=== PATIENT | female | born 2000 | race African-American/Black ===

== ENCOUNTER 2019-03-10 20:31 | Emergency (ER) | payer MEDICAID ==
[~2019-03-10] VITALS: Ht 152.4 cm; Wt 46.3 kg
[2019-03-10 20:35] VITALS: BP_SYST 109
--- NOTE | 2019-03-10 20:40 | NUR ---
Placed in room 2 . Placed on media librarian, blood pressure machine and pulse oximeter. To gown for exam. Side rails up. Report given to Cely ANSARI(registry).
--- NOTE | 2019-03-10 20:48 | NUR ---
Pt. RECIEVEED FROM TRIAGE, W/ CHIEF C/O SYNCOPAL EPISODE, AFTER [place] BECAME DIZZY, W/ MALAISE AND NAUSEA. AAOX4 SKIN W/D TO TOUCH, [place], +2 PULSES, NEG EDEMA. VS DONE. FOSTER CARE MOM AT BEDSIDE. PENDING MD REARDON / Tx.
--- NOTE | 2019-03-10 20:50 | NUR ---
DANNIELLE Bell at bedside examining patient.
[2019-03-10] MEDS ORDERED: NACL 0.9% 1,000 ML IV ONE (21:00)
[2019-03-10] MEDS ORDERED: ONDANSETRON HCL 4 MG/2 ML VIAL IVP ONE (21:00)
--- NOTE | 2019-03-10 21:00 | NUR ---
PATIENT LAST MEAL WAS BREAKFAST, HAD SNACKS AT 3 PM, WENT TO A [place] CLASS, WHERE SHE BECAME DIZZY, Pt. IS NOT SEXUALLY ACTIVE, DENIES Hx OF DIETING, OR BODY IMAGE DISTURBANCE. NEW ODERS IN. POS URINE NEG, U/A SENT TO LAB. LAB DRAWN BY BROACHING MACHINE OPERATOR. PT TOLERATED WELL.
[2019-03-10 21:34] LABS: BASOPHILS % (AUTO) 0.4 % (0.0-2.0); EOSINOPHILS # (AUTO) 0.1 K/uL (0.0-0.4); EOSINOPHILS % (AUTO) 1.3 % (0.0-4.0); HEMATOCRIT 45.5 % (36-48); HEMOGLOBIN 15.7 g/dL (12.0-16.0); LYMPHOCYTES # (AUTO) 2.5 K/uL (1.0-5.5); LYMPHOCYTES % (AUTO) 31.4 % (20.5-51.5); MEAN CORPUSCULAR HEMOGLOBIN 32 pg (27-31); MEAN CORPUSCULAR HGB CONC 35 % (32-36); MEAN CORPUSCULAR VOLUME 93 fL (79.0-98.0); MONOCYTES # (AUTO) 0.7 K/uL (0.0-1.0); MONOCYTES % (AUTO) 8.4 % (1.7-9.3); NEUTROPHILS # (AUTO) 4.7 K/uL (1.8-7.7); NEUTROPHILS % (AUTO) 58.5 % (40.0-70.0); PLATELET COUNT (AUTO) 259 K/uL (130-430); RED BLOOD CELL COUNT(AUTO) 4.89 MIL/uL (4.2-6.2); RED CELL DISTRIBUTION WIDTH 12.5 % (9.0-15.0)
[2019-03-10 21:44] LABS: BILIRUBIN,URINE NEGATIVE (NEGATIVE); BLOOD, URINE NEGATIVE (NEGATIVE); CLARITY/URINE SL HAZY (CLEAR); COLOR,URINE YELLOW (YELLOW); GLUCOSE,URINE NEGATIVE (NEGATIVE); KETONES,URINE 1+ (NEGATIVE); LEUKOCYTE ESTERASE ,URINE NEGATIVE (NEGATIVE); NITRITE, URINE NEGATIVE (NEGATIVE); PROTEIN URINE TRACE (NEGATIVE); UROBILINOGEN,URINE 0.2 (0.2-1.0)
[2019-03-10 21:44] LABS: CALCIUM 9.2 mg/dL (8.4-11.0); CREATININE 1.04 mg/dL (0.55-1.30); POTASSIUM 4.2 mmol/L (3.5-5.1)
[2019-03-10 21:50] LABS: ALBUMIN 4.1 g/dL (3.4-4.8); TOTAL BILIRUBIN 0.3 mg/dL (0.0-1.0)
[2019-03-10 22:14] LABS: BARBITURATE, URINE NEGATIVE (NEG <=200); BENZODIAZEPINE, URINE NEGATIVE (NEG <=150); CANNABINOID, URINE NEGATIVE (NEG <=50); COCAINE, URINE NEGATIVE (NEG <=150); METHAMPHETAMINES SCREEN,URINE NEGATIVE (NEG <=500); OPIATE, URINE NEGATIVE (NEG <=100); PHENCYCLIDINE SCREEN,URINE NEGATIVE (NEG <=25); UR TRICYCLIC ANTIDEPRESSANTS NEGATIVE (NEG <=300); URINE AMPHETAMINE NEGATIVE (NEG <=500); URINE METHADONE NEGATIVE (NEG <=200); URINE OXYCODONE SCREEN NEGATIVE (NEG <=100); URINE PROPOXYPHENE SCREEN NEGATIVE (NEG <=300)
--- NOTE | 2019-03-10 22:45 | NUR ---
PATIENT RECIEVED MEDS ORDERED VERBALIZED FEELING BETTER. PATIENT ENCOURAGED TO INCREASE HER WATER INTAKE, EAT A WELL BALANCE DIET TO AVOID GENERALIZED MALAISE AND DIZZINESS. Pt AND GUARDIAN VERBALIZED UNDERSTANDING.
--- NOTE | 2019-03-10 23:20 | NUR ---
PT D/C HOME W/ FOSTER CARE MOM. D/C INSTRUCTIONS EXPLAINED AND COPY GIVEN TO PT AND FOSTER MOM, BOTH VERBALIZED UNDERSTANDING. VS STABLE. AT PRESENT VOICES NO C/O SEVERE PAIN OR DISCOMFORT. AMBULATED OUT OF ED W/ GUARDIAN, GAIT STEADY AND ERRECT.
[2019-03-10 23:30] VITALS: BP_SYST 110
== END 2019-03-10 23:20 | disposition home or self-care (01) ==
LOC: SED 20:31
DX: R55 Syncope and collapse (principal); W22.8XXA Striking against or struck by other objects, initial encounter; Y93.89 Activity, other specified; Y92.89 Other specified places as the place of occurrence of the external cause; Y99.8 Other external cause status
CPT/HCPCS: 36415; 71045; 80053; 80307; 81003; 85025; 93005; 96361; 96374; 99284; J2405; J7030